=== PATIENT | male | born 1940 | race Caucasian/White ===

== ENCOUNTER 2017-09-15 09:32 | Inpatient (IN) | payer MEDICAID, MEDICARE ==
[~2017-09-15] VITALS: Ht 175.3 cm; Wt 79.5 kg
[2017-09-15] MEDS ORDERED: LORazepam 2 MG/ML VIAL (J2060) IV STA ×2 (09:36→09:48)
[2017-09-15 10:13] LABS: MEAN CORPUSCULAR HEMOGLOBIN 34.9 pg (27.0-33.0); MEAN CORPUSCULAR HGB CONC 35.8 g/dl (32.0-36.5); MEAN CORPUSCULAR VOLUME 97.5 fl (80.0-96.0); PLATELET COUNT, AUTOMATED 201 10^3/uL (150-450); RED CELL DISTRIBUTION WIDTH 13.5 % (11.5-14.5); WHITE BLOOD COUNT 10.4 10^3/uL (4.0-10.0)
[2017-09-15 10:23] LABS: INR 1.06
[2017-09-15 10:41] LABS: ANION GAP 12 MEQ/L (8-16); BLOOD UREA NITROGEN 11 MG/DL (7-18); CALCIUM LEVEL 8.5 MG/DL (8.8-10.2); CARBON DIOXIDE LEVEL 25 MEQ/L (21-32); CHLORIDE LEVEL 103 MEQ/L (98-107); GLOMERULAR FILTRATION RATE > 60.0 (>42); GLUCOSE, FASTING 150 MG/DL (83-110); POTASSIUM SERUM 3.4 MEQ/L (3.5-5.1); SODIUM LEVEL 140 MEQ/L (136-145)
[2017-09-15] MEDS ORDERED: ASPI81CH PO (10:44)
--- NOTE | 2017-09-15 11:21 | REP ---
Noncontrast CT study of the brain: History: Trauma. Findings: Bone window settings demonstrate an intact bony calvarium. No skull fracture is seen. Vascular calcifications noted in the distal vertebral and distal carotid arteries bilaterally. No intraorbital abnormality is seen. There is a right posterior parietal and right occipital scalp hematoma and laceration with some subcutaneous scalp air. There is a small parenchymal hematoma just above the petrous apex in the left posterior temporal lobe. This measures 16 mm in greatest diameter. There is a small zone of surrounding edema. No other intracranial hemorrhage is seen. There is a tiny low density area in the basal ganglia on the right consistent with a tiny old lacunar infarct. No midline shift is seen. No extra-axial fluid collection is seen. No infarct or mass lesion is observed. Impression: 16 mm contrecoup hematoma left posterior temporal lobe. Right posterior parietal vertex scalp hematoma and laceration. No skull fracture. No extra-axial hematoma. This report was telephoned to Dr. Perez in the ER at the time of this dictation. Signed by Rayshawn Zapata MD 09/15/2017 02:44 P
--- NOTE | 2017-09-15 11:44 | REP ---
CT study of the cervical spine without contrast: History: Injury in a fall. Technique: Helical scanning is acquired. 2 mm axial images are generated. Coronal and sagittal multiplanar re-formation images are generated and reviewed as well. CT findings: There is no evidence of cervical spine element fracture. There is advanced degenerative spondylosis with degenerative disc disease at each level from C3-4 through T7-T1. However, the C4-5 disc level and the left C4-5 facet are ankylosed. The right C5-6 facet appears to be ankylosed. There is osteoarthritic facet hypertrophy otherwise noted at multiple levels bilaterally. Some osteoarthritic changes are seen at the articulation between the dens and the anterior arch of C1. No malalignment is seen. No fracture or collapse is noted. Prevertebral soft tissues are not widened. No intraspinal or paraspinal hematoma is seen. Vascular calcification is noted. The visualized lung apices are clear. Impression: Degenerative spondylosis changes. C4-5 disc fusion and facet joint fusion as above. No fracture or other acute bony abnormality. Signed by Rayshawn Zapata MD 09/15/2017 02:44 P
[2017-09-15] MEDS ORDERED: POTASSIUM CHLORIDE 10 MEQ SR TABLET PO ONE (12:15)
[2017-09-15] MEDS ORDERED: MORPHINE 2 MG/ML 1ML SYRINGE IV PRN (12:30)
[2017-09-15] MEDS ORDERED: ONDANSETRON 4MG/2ML VIAL (J2405) IV PRN (12:30)
[2017-09-15] MEDS ORDERED: CEFAZOLIN SOD 1 GM in APPROPRIATE DILUENT 1 EA IV ONE (12:30)
[2017-09-15 12:47] LABS: MAGNESIUM LEVEL 2.3 MG/DL (1.8-2.4)
[2017-09-15] MEDS: levETIRAcetam 250MG TABLET (KEPPRA) PO SCH ×2 (13:37→21:58)
[2017-09-15] MEDS: ACETAMINOPHEN TAB 650MG DOSE (2X325MG) PO SCH ×3 (13:38→23:54)
[2017-09-15] MEDS: KCL 20MEQ IN D5/NS 1000ML 1,000 ML IV SCH ×2 (13:50→21:59)
[2017-09-15 14:02] LABS: ANION GAP 8 MEQ/L (8-16); BLOOD UREA NITROGEN 11 MG/DL (7-18); CALCIUM LEVEL 8.5 MG/DL (8.8-10.2); CARBON DIOXIDE LEVEL 25 MEQ/L (21-32); CHLORIDE LEVEL 107 MEQ/L (98-107); CREATININE FOR GFR 0.83 MG/DL (0.70-1.30); GLOMERULAR FILTRATION RATE > 60.0 (>42); GLUCOSE, FASTING 113 MG/DL (83-110); SODIUM LEVEL 140 MEQ/L (136-145)
--- NOTE | 2017-09-15 15:52 | CR ---
DATE OF CONSULTATION: 09/15/2017 PRIMARY CARE PROVIDER: None. CONSULTATION REPORT FOR: Dr. Worley REASON FOR CONSULTATION: Management of chronic medical problems. CHIEF COMPLAINT: Fall. HISTORY OF PRESENT ILLNESS: Provided by his son who is present at the bedside. The patient is unable to provide history as there is no recollection of the events last night and this morning. Healthcare proxy is Hunter Quezadalor. Phone number is [phone]. According to the son, the patient has no significant past medical history. He was brought in today due to a fall this morning. He had seen his father last evening at around 11:00 to 11:30. He was last seen talking to his daughter on the telephone and when the patient's son had gone home, the father had called him there and he said he will see him again this morning. According to the son, the patient was found by the roommate at 9:00 a.m. this morning in the dining room, lying back after hitting his head on the metal base of a chair. The patient has been living in the house with a roommate who was sitting on the couch this morning when he heard a loud thump. When he came into the dining room, he found the patient on the floor with a laceration on the left side of his scalp. The roommate attempted to find the patient's cell phone but could not. He then went outside the home, was able to get help, and emergency medical services (EMS ) arrived. According to the son, the patient has been a heavy drinker in the past and most likely has not had any alcohol for the past two months as he has not seen any evidence of recent alcohol use. Once in awhile, he sees a beer can at home. He had been in his usual state of health. He has not had any fevers, cough , diarrhea, nausea, vomiting, or any abdominal pain. Denies any dysuria, urgency, or frequency. His son sees him daily to check up on him. He has been able to complete his activities of daily living. He does not have a car but usually walks around with a stable gait. When the patient was brought in to the emergency room (ER), he was found to have left scalp laceration with traumatic closed head injury. CT of the head showed a small parenchymal hematoma about the petrous apex in the left posterior temporal lobe, measuring 16 mm in greatest diameter with surrounding edema. No other intracranial hemorrhage. There is a right posterior parietal and right occipital scalp hematoma and laceration with some subcutaneous scalp air and right basal ganglia old lacunar infarct. The patient was seen by Dr. Worley who placed the patient on cefazolin as well as Keppra with seizure precautions. Hospitalist service was called to admit for medical issues. The patient was not able to provide any history and appears to have had an amnestic episode. He could not recall calling his daughter last night and this morning could not recall any of the events. Finger glucose was 150 on arrival. Prolactin level was high at 37.1 with questionable seizure from possible alcohol withdrawal. Alcohol was 0.005. The patient denied any use of recreational drugs. Mini mental status examination was 16. Unable to fully cooperate and usually reiterated the questions back without fully answering them. PAST MEDICAL HISTORY: Right shoulder injury secondary to trauma with skiing accident. HOME MEDICATIONS: Aspirin 81 mg daily. ALLERGIES: No known drug allergies. SOCIAL HISTORY: History of heavy alcohol abuse. Quit several months ago. 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 Lives with a roommate in his home. Walks daily. Does not have a car. Healthcare proxy is Hunter Gomez, phone number [phone]. The patient is a full code. Denies recreational drug use. FAMILY HISTORY: Mother at age 75 with cerebrovascular accident (CVA), hip fracture, "heart trouble." Father at age 73 with coronary artery disease (CAD) and myocardial infarction (AL). REVIEW OF SYSTEMS: Could not be obtained as the patient is very confused. History is obtained from the patient's son. PHYSICAL EXAMINATION: Temperature 96.8, pulse 96, respiratory rate 20, blood pressure 142/60, 99% on two liters nasal cannula. GENERAL: The patient is awake, alert, and oriented times two to person and place. He is disoriented to time and date. He is able to say his name and [place], [place]. He thinks that he is at [facility]. Pupils are equally round and reactive to light and accommodation. Extraocular muscles are intact. The patient has a laceration along the left posterior parietal and occipital scalp with dried blood. Tongue is midline. The patient is able to speak fluently but slow. He is appropriate with responses. Appears to have some retrograde amnesia, unable to recall events yesterday. No sensory disturbance. The patient's motor function 5/5 bilateral upper extremities. Lower extremities are 4/5. The patient has no pronator drift, some dysmetria on [id number] testing. Mini mental status examination is 16. The patient is unable to provide the year, stated that it was "19 something." He is able say that it is winter. Unable to provide the date and day of the week. Unable to provide the month and states that it is Zechariah. With some prompting , he was able to say September. He is able to say he is in [place], [facility] in [place], not sure about the floor and stated that he was at [facility]. He is unable to perform the serial sevens. Unable to spell the word world backwards. Unable to name three objects. The patient was able to follow simple commands, folding a paper in half and putting it on his bed. Able to follow simple instructions such as close your eyes. Unable to write a sentence with a noun and a verb. Unable to copy a picture. According to the son, this is a marked difference from yesterday when the patient was able to perform his activities of daily living. LUNGS: Clear to auscultation. No wheezing, rales, or rhonchi. HEART: S1, S2, sinus rhythm. No murmurs, rubs, or gallops. ABDOMEN: Soft, nontender, nondistended. Positive bowel sounds. EXTREMITIES: No clubbing, cyanosis, or pitting edema. LABORATORY DATA: White count 10.4, hemoglobin 13, hematocrit 38, platelet count 201. Sodium 140, potassium 4, chloride 107, bicarbonate 25, BUN 11, creatinine 0.83, glucose of 113, prolactin of 37.1, troponin less than 0.02, MB fraction 2.7, total CK 76, magnesium of 2.3, INR of 1.06, PT 14, PTT 24.8, ethyl alcohol is 0.005. CT of the head shows right posterior parietal and right occipital scalp hematoma and laceration with some subcutaneous scalp air, small parenchymal hematoma above the petrous apex in the left posterior temporal lobe, measuring 16 mm in the greatest diameter. There is a small zone of surrounding edema. No other intracranial hemorrhage is seen. There is a tiny low-density area in the basal ganglia on the right consistent with tiny old lacunar infarct. No midline shift is seen. No extra-axial fluid collection. No infarct or mass lesion is observed. A 16 mm contrecoup hematoma in the left posterior temporal lobe, right posterior parietal vertex scalp hematoma and laceration. No skull fracture. No extra-axial hematoma. EKG shows sinus rhythm, ventricular rate of 109, premature ventricular complexes , moderate intraventricular conduction delay. CT of the cervical spine shows degenerative spondylosis changes, C4-5 disc fusion and facet joint fusion. No fracture or other acute bony abnormality. ASSESSMENT AND PLAN: This is a 77-year-old male with history of right shoulder traumatic injury. He was brought in after being found on the floor in the dining room with a closed traumatic brain injury with unknown circumstances. The patient is unable to provide the history and has a known history of alcohol abuse according to the son, unknown whether he may have had alcohol withdrawal seizure this morning, presents with traumatic closed head injury and a left posterior temporal lobe hematoma. Hospitalist service was consulted to manage medical issues. The patient has been admitted to neurosurgical services, Dr. Worley. The patient will be assigned to Dr. Alex Chamorro, hospital attending, on 09/15/2017 at 7:00 p.m. for the following issues: 1. Acute encephalopathy secondary to traumatic closed brain injury with a 16 mm contrecoup hematoma in the left posterior temporal lobe. The patient is known to have had a history of heavy alcohol abuse according to the son with questionable withdrawal seizures at home, causing his fall. As the patient is unable to provide most of the history, we will obtain an EEG, rule out seizures. He is currently on Keppra 500 twice a day. He appears to have no signs of aspiration but we will keep nothing by mouth in case neurosurgical intervention is required. We will check urine toxicology screen, check urinalysis to rule out urinary tract infection. The patient has no significant white count or fever to suspect possible infection as the cause for the patient's fall. 2. Traumatic closed brain injury with a 16 mm contrecoup left posterior temporal lobe hematoma. He will be managed by primary service. Currently nothing by mouth status in case neurosurgical services are required. The patient is to be on a head elevation of 30 degrees at all times. Neurologic checks every two hours. Physical therapy evaluation in the morning. IV fluids while nothing by mouth to prevent dehydration. Current mini mental status on admission is 16. May need to repeat to make sure that he is improving over time. We will obtain MRI of the brain and an EEG. 3. Hypokalemia with premature ventricular contractions (PVCs) on EKG. Potassium has been supplemented. Magnesium is normal. 4. Probably underlying dementia with mini mental status examination of 16. The patient will need to be fully evaluated as outpatient with neuropsychiatric evaluation and possible neurology referral. 5. History of alcohol abuse. The patient denies drinking any alcohol for the past one month. We will monitor for symptoms. 6. Possible seizure. We will obtain an EEG. Prolactin level is elevated. Currently on Keppra 500 twice a day. Aspiration and seizure precautions. 7. Deep vein thrombosis (DVT) prophylaxis with compression stockings due to traumatic closed brain injury with hemorrhage. The patient will be assigned to Dr. Alex Chamorro at 7:00 p.m. on 09/15/2017. ANNE MARIE
[2017-09-15 22:00] VITALS: BP 170/70
[2017-09-15 22:06] VITALS: BP 170/70
[2017-09-15] MEDS: hydrALAZINE INJ 20 MG/ML VIAL IV SCH (22:32)
[2017-09-15 23:00] VITALS: BP 158/77
[2017-09-15 23:22] LABS: MEAN CORPUSCULAR VOLUME 97.3 fl (80.0-96.0); PLATELET COUNT, AUTOMATED 143 10^3/uL (150-450); RED CELL DISTRIBUTION WIDTH 13.3 % (11.5-14.5); WHITE BLOOD COUNT 10.3 10^3/uL (4.0-10.0)
[2017-09-15 23:33] LABS: INR 1.16
[2017-09-15 23:46] LABS: ALBUMIN 3.4 GM/DL (3.2-5.2); ALBUMIN/GLOBULIN RATIO 1.26 (1.00-1.93); ALKALINE PHOSPHATASE 81 U/L (45-117); ALT/SGPT 20 U/L (12-78); ANION GAP 8 MEQ/L (8-16); AST/SGOT 31 U/L (7-37); BILIRUBIN,DIRECT 0.3 MG/DL (0.0-0.2); BILIRUBIN,TOTAL 1.3 MG/DL (0.2-1.0); BLOOD UREA NITROGEN 8 MG/DL (7-18); CALCIUM LEVEL 8.1 MG/DL (8.8-10.2); CARBON DIOXIDE LEVEL 27 MEQ/L (21-32); CHLORIDE LEVEL 108 MEQ/L (98-107); CREATININE FOR GFR 0.84 MG/DL (0.70-1.30); GLOMERULAR FILTRATION RATE > 60.0 (>42); GLUCOSE, FASTING 119 MG/DL (83-110); POTASSIUM SERUM 3.9 MEQ/L (3.5-5.1); SODIUM LEVEL 143 MEQ/L (136-145); TOTAL PROTEIN 6.1 GM/DL (6.4-8.2)
[2017-09-16] VITALS (13 sets, daily range): BP systolic 129–155; BP diastolic 60–78
--- NOTE | 2017-09-16 04:35 | ECGEPIP ---
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
[2017-09-16] MEDS: KCL 20MEQ IN D5/NS 1000ML 1,000 ML IV SCH ×2 (05:04→11:43)
[2017-09-16 05:18] LABS: BASO % 0.2 % (0.0-1.0); EOS # 0.1 10^3/uL (0.0-0.50); EOS % 1.6 % (0.0-3.0); IMMATURE GRANULOCYTE % 0.5 % (0-0); LYMPH # 1.2 10^3/uL (1.5-4.5); LYMPH % 14.3 % (24.0-44.0); MEAN CORPUSCULAR HGB CONC 35.4 g/dl (32.0-36.5); MEAN CORPUSCULAR VOLUME 98.7 fl (80.0-96.0); MONO # 0.8 10^3/uL (0.0-0.8); MONO % 9.7 % (0.0-5.0); NEUTROPHILS # 6.4 10^3/uL (1.8-7.7); NEUTROPHILS % 73.7 % (36.0-66.0); PLATELET COUNT, AUTOMATED 140 10^3/uL (150-450); RED CELL DISTRIBUTION WIDTH 13.4 % (11.5-14.5); WHITE BLOOD COUNT 8.7 10^3/uL (4.0-10.0)
[2017-09-16 05:58] LABS: ANION GAP 7 MEQ/L (8-16); BLOOD UREA NITROGEN 7 MG/DL (7-18); CALCIUM LEVEL 7.6 MG/DL (8.8-10.2); CARBON DIOXIDE LEVEL 25 MEQ/L (21-32); CHLORIDE LEVEL 112 MEQ/L (98-107); CHOLESTEROL LEVEL 107 MG/DL (<200); CREATININE FOR GFR 0.83 MG/DL (0.70-1.30); GLOMERULAR FILTRATION RATE > 60.0 (>42); GLUCOSE, FASTING 108 MG/DL (83-110); MAGNESIUM LEVEL 1.9 MG/DL (1.8-2.4); POTASSIUM SERUM 3.8 MEQ/L (3.5-5.1); SODIUM LEVEL 144 MEQ/L (136-145); TRIGLYCERIDES LEVEL 72 MG/DL (<150)
[2017-09-16] MEDS: ACETAMINOPHEN TAB 650MG DOSE (2X325MG) PO SCH ×3 (06:09→18:07)
[2017-09-16] MEDS: hydrALAZINE INJ 20 MG/ML VIAL IV SCH ×2 (06:10→11:44)
--- NOTE | 2017-09-16 06:20 | REPUSA ---
CLINICAL HISTORY: Head trauma. Followup exam. TECHNIQUE: Multiple axial CT images were obtained through the brain without IV contrast material. COMMENTS: Comparison to prior exam performed on 09/15/2017. 1.8x1.4 cm left temporal intraparenchymal hematoma. Mild surrounding hypodensity/edema. Effacement of the adjacent sulci. Increased right subgaleal soft tissue hematoma. There is normal configuration of sella turcica. There is no mass effect or midline shift. No hydrocep halus is present. The ventricles are symmetrical. No abnormal calcifications are present. There is diffuse age-appropriate cerebellar and cerebral atrophy with proportionally dilated ventricl es and cortical sulci. There are bilateral periventricular and subcortical white matter hypolucencies compatible with mild c hronic microvascular disease. IMPRESSION: Unchanged left temporal intraparenchymal hematoma. Unchanged mild surrounding edema. No midline shift or brain herniation. Increased right subgaleal soft tissue edema. Thank you for your kind referral of this patient.
[2017-09-16] MEDS ORDERED: MAG SULF 1GM/100ML (MAG RUN) 1 GM in APPROPRIATE DILUENT 1 EA IV ONE (08:30)
[2017-09-16] MEDS ORDERED: POTASSIUM CHLORIDE 10 MEQ SR TABLET PO ONE (08:30)
[2017-09-16] MEDS: levETIRAcetam 250MG TABLET (KEPPRA) PO SCH ×2 (08:48→20:56)
[2017-09-16] MEDS: FOLIC ACID 1 MG TAB PO SCH (08:48)
[2017-09-16] MEDS: MULTIVITAMINS/MINERALS THERAP 1 TAB PO SCH (08:48)
[2017-09-16] MEDS: THIAMINE 100 MG TAB PO SCH (08:48)
[2017-09-16] MEDS: CLOTRIMAZOLE 1% TOPICAL CREAM 30GM TOP SCH ×3 (09:00→21:06)
[2017-09-16 10:26] LABS: VITAMIN B12 LEVEL 573 PG/ML (247-911)
[2017-09-16] MEDS ORDERED: hydroCHLOROthiazide 12.5 MG CAPSULE PO ONE (14:00)
--- NOTE | 2017-09-16 14:06 | IPN ---
DATE OF EXAMINATION: 09/16/2017 SUBJECTIVE: Today, the patient tells me that he is feeling well. He denies any specific complaints of pain, headache. He denies fevers, chills, chest pain, shortness of breath, nausea, vomiting, or diarrhea. OBJECTIVE: VITAL SIGNS: Temperature 98.5. Pulse 89. Respiratory rate 24. Blood pressure (BP) 135/66. Oxygen (O2) saturation 95% on room air. GENERAL: He is an elderly man. Appears younger than his stated age. Lying in bed at a 30-degree angle. He does not appear to be in any acute distress. HEENT: He has an impressive laceration, which is stapled shut, on his right parietooccipital area. Cranial nerves II-XII are grossly intact. He has dry mucous membranes. No elevation in central venous pressure (CVP). CARDIOVASCULAR EXAMINATION: S1, S2. Crescendo-decrescendo systolic murmur. RESPIRATORY EXAMINATION: Is clear. ABDOMINAL EXAMINATION: Is obese. Bowel sounds present. The abdomen is soft. EXTREMITIES: No clubbing, cyanosis, or edema. He is not tremulous, diaphoretic. LABORATORY STUDIES: WBC 8.7 down from 10.4, hemoglobin 10.8, platelet count 140. Chemistry panel: Sodium 144, potassium 3.8, chloride 112, bicarbonate 25, BUN 7 , creatinine 0.8, magnesium 1.9, TSH within normal limits. A prolactin level was elevated at the time of his admission yesterday at 10 a.m. INR 1.1. Toxicology: An ethyl alcohol level was 0.005. IMAGING: The patient had a repeat CT scan of his head that revealed unchanged left temporal intraparenchymal hematoma, unchanged mild surrounding edema, no midline shift or brain herniation, increased right subgaleal soft tissue edema. ASSESSMENT AND PLAN: This is a 77-year-old man with an unwitnessed fall with small intracranial hemorrhage. PROBLEMS: 1. Intracranial hemorrhage. I have spoken with Dr. Worley today in person. He has assured me that the patient requires no further neurosurgical care interventions. The patient is able to have a regular diet. Is stable for transfer out of the medical intensive care unit. He had previously stated he wished to have blood pressure goals of systolic less than 140. At this time, if the patient was stable, he was fine with the patient being discharged home. 2. Fall. The patient does appear to have some ataxia on my examination today. He is awake, alert, oriented but does exhibit some word-finding difficulty. He was reportedly ataxic with physical therapy. An MRI with and without contrast has been ordered yesterday evening at once (STAT) and curiously has not been completed as of yet. Given that this patient did have an unwitnessed fall, I am certainly concerned for syncope. There was some question as to whether or not he may have had an alcohol withdrawal seizure. His prolactin level is elevated. An electroencephalogram (EEG) has been ordered. He is on seizure prophylaxis. Dr. Worley has suggested that this should be continued for at least 7 days; and beyond that, he would defer to a neurologist. The patient does not appear to be exhibiting any signs or symptoms of withdrawal and has not required any benzodiazepine therapy since his arrival to the floor. I have spoken with Dr. Rossi of neurology, who will see the patient in consultation. It appears as though Dr. Worley did order a consult on paper and placed an order in the computer. However, it is unclear to me if neurology was ever actually called and spoken to. Also, given that his son witnessed a syncopal episode and the patient does have a crescendo-decrescendo systolic murmur, it is highly suggested of aortic stenosis. I will check an echocardiogram. He is working with physical therapy. 3. Tinea pedis. Will provide him with clotrimazole topically. 4. Hypokalemia and hypomagnesemia. He did have some mild premature ventricular contractions (PVCs) on telemetry. I will provide him with electrolyte supplementation. 5. Possible underlying dementia. He has a thyroid-stimulating hormone (TSH) within normal limits. It is unclear to me if he has underlying dementia versus this is a postconcussive syndrome. 6. History of alcohol abuse. He did not have an elevated alcohol level in his presentation. Will provide him with thiamine, folic acid, and multivitamin. He is not exhibiting any signs or symptoms of withdrawal at this time. 7. Deep vein thrombosis (DVT) prophylaxis with sequentials and thromboembolic deterrents (TEDs). DISPOSITION: Dr. Worley has transferred this patient out of medical intensive care unit. I have agreed to take him under the care of my service. So, I will continue to follow this patient and evaluate him for syncope. ANNE MARIE
[2017-09-17] MEDS: ACETAMINOPHEN TAB 650MG DOSE (2X325MG) PO SCH ×2 (00:02→05:26)
[2017-09-17 04:00] VITALS: BP 137/70
--- NOTE | 2017-09-17 07:26 | CR ---
DATE OF CONSULTATION: 09/16/2017 REFERRING PHYSICIAN: Dr. Alex Chamorro REASON FOR CONSULTATION: Left posterior temporal cerebral hemorrhage after trauma. HISTORY OF PRESENT ILLNESS: Steven Gomez is a 77-year-old man who was at his baseline state of health until 09/15/2017 when he fell in the morning. He had no recollection of events the night before or that morning when he came to [facility]. He last talked to his daughter the night before on the phone. According to the son, the patient was found around 9:00 a.m. in the dining room laying back after hitting his head on a metal base of a chair. He was found with a laceration on the left side of his scalp. The patient denies that he drinks alcohol. He states that he may have one mixed drink a day and he does not drink every day. The patient denies having seizure. He states that he was fixing his living room and roof when he fell and hit his head. There is mentioning in electronic medical records if he had a seizure which resulted in a fall. It is thought that he may have had a seizure due to alcohol withdrawal. The patient himself denies having a seizure. He denies any headaches, neck or back pain. He denies any dizziness or difficulty with his speech. He states that he walks every day and he walks a lot. He does not take a bus. He keeps himself physically active. He states that he was trying to fix his living room and roof when he fell. DIAGNOSTIC STUDIES: CT scan of his head was reviewed and showed left posterior temporal 1.6 cm cerebral hemorrhage due to trauma and contusion. His hematocrit is 30.5 and platelet count is 140 with normal metabolic profile. His blood alcohol level was 0.005. PAST MEDICAL HISTORY: Right shoulder injury due to skiing accident. HOME MEDICATIONS: - aspirin 81 mg by mouth daily ALLERGIES: None. SOCIAL HISTORY: The patient states that he drinks one mixed drink a day and sometimes he does not drink at all. There is mention of alcohol abuse history in the past. FAMILY HISTORY: Mother had stroke, she also had heart disease. Father had coronary artery disease. REVIEW OF SYSTEMS: All systems were reviewed and found to be noncontributory except as mentioned in history of present illness. PHYSICAL EXAMINATION: Temperature is 99.1, pulse 85, respiratory rate 20, blood pressure 140/60, and 94% saturation on room air. Heart: Regular rate and rhythm. Lungs: Clear to auscultation. No pedal edema. No sign of meningeal irritation. There is no tremor, fracture or rash. The patient is awake, alert, oriented to place, person and year. He is able to tell me the name of the president. He does have mild receptive aphasia. Extraocular muscles are intact. No facial weakness. Tongue and uvula are midline. 5/5 strength in all four extremities. Deep tendon flexes 2+ throughout. Normal sensation to touch, pinprick and vibration in both sides. His plantars are downgoing. Gait was not tested. There is no dysmetria. ASSESSMENT: 1. Traumatic left posterior temporal cerebral hemorrhage. 2. No clear evidence of seizure. PLAN: 1. The patient may benefit from speech therapy. He does seem to have mild receptive aphasia. 2. Left posterior temporal cerebral hemorrhage has been stable on his repeat CT scan of head. We may repeat his scan as outpatient in a few weeks to see if complete resolution of his left temporal cerebral hemorrhage and contusion. 3. Follow with our office in 2-3 weeks after hospital discharge. 4. The patient was seen by neurosurgery and they did not recommend neurosurgical intervention.
[2017-09-17 07:59] LABS: MEAN CORPUSCULAR HEMOGLOBIN 34.8 pg (27.0-33.0); MEAN CORPUSCULAR VOLUME 99.3 fl (80.0-96.0); PLATELET COUNT, AUTOMATED 123 10^3/uL (150-450); RED CELL DISTRIBUTION WIDTH 13.6 % (11.5-14.5); WHITE BLOOD COUNT 6.8 10^3/uL (4.0-10.0)
[2017-09-17 08:20] LABS: ANION GAP 8 MEQ/L (8-16); BLOOD UREA NITROGEN 9 MG/DL (7-18); CARBON DIOXIDE LEVEL 25 MEQ/L (21-32); CHLORIDE LEVEL 110 MEQ/L (98-107); CREATININE FOR GFR 0.85 MG/DL (0.70-1.30); GLOMERULAR FILTRATION RATE > 60.0 (>42); GLUCOSE, FASTING 93 MG/DL (83-110); POTASSIUM SERUM 4.1 MEQ/L (3.5-5.1); SODIUM LEVEL 143 MEQ/L (136-145)
[2017-09-17] MEDS: THIAMINE 100 MG TAB PO SCH (09:30)
[2017-09-17] MEDS: levETIRAcetam 250MG TABLET (KEPPRA) PO SCH ×2 (09:30→21:00)
[2017-09-17] MEDS: hydroCHLOROthiazide 12.5 MG CAPSULE PO SCH (09:30)
[2017-09-17] MEDS: MULTIVITAMINS/MINERALS THERAP 1 TAB PO SCH (09:30)
[2017-09-17] MEDS: FOLIC ACID 1 MG TAB PO SCH (09:30)
[2017-09-17] MEDS: CLOTRIMAZOLE 1% TOPICAL CREAM 30GM TOP SCH ×2 (09:31→21:02)
[2017-09-17] MEDS ORDERED: PROHANCE 279.3MG/ML 15ML VIAL (A9576) As Ordered ONE (10:44)
[2017-09-17 12:00] VITALS: BP 148/72
--- NOTE | 2017-09-17 13:01 | IPN ---
DATE OF EXAMINATION: 09/17/2017 SUBJECTIVE: The patient tells me that he is doing significantly better. He denies any significant pain. He denies fevers, chills, chest pain, shortness of breath, nausea, vomiting, or diarrhea. OBJECTIVE: VITAL SIGNS: Temperature 99. T-max 99.1. Pulse 69. Respiratory rate 18. Blood pressure (BP) 137/70. Oxygen (O2) saturation 96% on room air. GENERAL: He is a somewhat disheveled elderly man who appears younger than his stated age sitting on the edge of his bed. He does not appear to be in any acute distress. HEENT: He has a well healing laceration. He has a subconjunctival hemorrhage of his right eye. Moist mucous membranes. No elevation in central venous pressure (CVP). CARDIOVASCULAR EXAMINATION: S1, S2, regular. Crescendo-decrescendo systolic murmur. RESPIRATORY EXAMINATION: Clear. ABDOMINAL EXAMINATION: Mildly obese. EXTREMITIES: No clubbing, cyanosis, or edema. LABORATORY STUDIES: WBC 6.8, hemoglobin 10.4, platelet count 123. Chemistry panel: Sodium 143, potassium 4.1, chloride 110, bicarbonate 25, BUN 9, creatinine 0.8. No new imaging. ASSESSMENT AND PLAN: This is a 77-year-old man status post unwitnessed syncopal episode with head trauma. PROBLEMS: 1. Intracranial hemorrhage. Neurosurgery's help is appreciated. They have signed off on the case. The patient requires no neurosurgical intervention. He is currently on antiepileptic therapy to complete a seven day course. Dr. Worley I greatly appreciate seeing the patient and recommended speech therapy as the patient does have some receptive aphasia. He has also recommended repeating the CT scan of the head in a few weeks through his office. The patient does appear to be much improved today. He is awake, alert and oriented times three. His blood pressure goal is less than 140, which has been easily controlled with hydrochlorothiazide 12.5 mg by mouth daily. 2. Unwitnessed syncope. The etiology remains unclear. A MRI has been ordered and will be completed today. EEG has also been ordered as well as an echocardiogram given that the patient has a murmur. He has been monitored on telemetry without any significant events and has been downgraded to the medical-surgical floor. The patient is unable to recall the incident and there were no witnesses who are reachable. Dr. Rossi does not share a concern for potential seizure as he feels there is no clear evidence for this. 3. Tinea pedis. The patient was started on clotrimazole topically twice a day. 4. Hypokalemia and hypomagnesemia. Appears to have resolved. 5. History of alcohol abuse. He is on folic acid, thiamine and multivitamin. He does have some macrocytic anemia which is highly suggestive of this. Alcohol cessation counseling has been provided. 6. Deep vein thrombosis (DVT) prophylaxis with sequentials and thromboembolic deterrents (TEDs). No pharmacological agents in the setting of recent intracranial hemorrhage. DISPOSITION: Pending clearance from physical therapy (PT), followup echo, MRI and EEG results.
--- NOTE | 2017-09-17 15:59 | REP ---
MRI brain without and with IV contrast: History: Altered mental status. Comparison study is a head CT from September 16, 2017. CT study from September 15, 2017 also reviewed. Technique: Axial and sagittal imaging planes are utilized for T1 and T2-weighted scans. Sequences include spin-echo, fast spin echo, FLAIR, and diffusion weighted sequences. MRI contrast dose: 15 mL of intravenous ProHance. MRI findings: There is metallic field susceptibility artifact emanating from scalp dalton in the region of the right occipital scalp hematoma. There is a fairly extensive subgaleal component to the right scalp hematoma as well. This is seen extending caudally nearly to the petrous apex. No bony calvarial lesion is seen. There is a mucous retention cyst in the left maxillary sinus. The patient is status post bilateral cataract surgery. No other intraorbital abnormality is seen. Craniocervical junction and upper cervical cord are normal in appearance. An acute left temporal lobe hematoma is seen just above the petrous apex on the left corresponding to the CT findings. There is blooming from hemosiderin and chemical shift artifact in the region of the hematoma. Hematoma appears to be 21 mm in greatest transverse dimension on axial images. This is unchanged from most recent CT study of September 16, 2017. There is a rim of surrounding vasogenic edema and there is subtle attenuation of the temporal horn of the lateral ventricle. There is a new finding however of a blood fluid level in the occipital horn of the right lateral ventricle indicating some ventricular penetration versus spontaneous intraventricular hemorrhage. Ventricular size is unchanged. There are white matter microischemic changes in the periventricular and subcortical white matter bilaterally. No other parenchymal hemorrhage is seen. Impression: 1. 2.1 cm left temporal lobe parenchymal hemorrhage. Surrounding vasogenic edema. This is essentially unchanged from yesterday's CT study. 2. There is a blood fluid level visible in the right occipital horn indicating a small amount of intraventricular hemorrhage. 3. No evidence of extra-axial fluid collection infarct or midline shift. 4. Fairly large right scalp and subgaleal hematoma. Signed by Rayshawn Zapata MD 09/17/2017 04:17 P
[2017-09-17 20:00] VITALS: BP 137/58
[2017-09-18 04:00] VITALS: BP 152/74
[2017-09-18 06:49] LABS: MEAN CORPUSCULAR HEMOGLOBIN 34.2 pg (27.0-33.0); MEAN CORPUSCULAR HGB CONC 35.1 g/dl (32.0-36.5); MEAN CORPUSCULAR VOLUME 97.4 fl (80.0-96.0); PLATELET COUNT, AUTOMATED 141 10^3/uL (150-450); RED CELL DISTRIBUTION WIDTH 13.6 % (11.5-14.5); WHITE BLOOD COUNT 7.7 10^3/uL (4.0-10.0)
[2017-09-18 07:12] LABS: ANION GAP 3 MEQ/L (8-16); BLOOD UREA NITROGEN 10 MG/DL (7-18); CALCIUM LEVEL 8.5 MG/DL (8.8-10.2); CARBON DIOXIDE LEVEL 30 MEQ/L (21-32); CHLORIDE LEVEL 107 MEQ/L (98-107); GLOMERULAR FILTRATION RATE > 60.0 (>42); GLUCOSE, FASTING 91 MG/DL (83-110); POTASSIUM SERUM 3.8 MEQ/L (3.5-5.1); SODIUM LEVEL 140 MEQ/L (136-145)
--- NOTE | 2017-09-18 07:56 | EEG ---
DATE OF PROCEDURE: 09/16/2017 REFERRING PHYSICIAN: Dr. Worley DIAGNOSIS: Cerebral hemorrhage, rule out seizures. EEG NUMBER: [id number]. HISTORY: The patient is a 77-year-old man who was admitted at [facility] after a fall resulting in left posterior temporal confusion and cerebral hemorrhage. This EEG was done to rule out epileptic potential. He is currently on Keppra. TECHNICAL DESCRIPTION: This digital EEG was recorded by 21 scalp, ear and two EKG electrodes and was reviewed in bipolar and referential montages following reformatting in 10-20 International Electrode Placement System. INTERPRETATION: The patient was noted to be in awake and drowsy states during this EEG. Resting awake background rhythm consisted of well-formed posterior dominant rhythm with anterior/posterior gradient comprising of 10 Hz alpha activity measuring 15-40 microvolts in amplitude. Stage I and II sleep were reviewed and were symmetric bilaterally. Hyperventilation could not be performed. Photic stimulation remained unremarkable. Intermittent left parietal and posterior temporal theta slowing was noted. No epileptiform abnormalities were seen. No clinical or electrographic seizures were recorded. CONCLUSION: This EEG in awake, drowsy states, stage I and II sleep is mildly abnormal due to presence of mild intermittent left parietal and posterior temporal theta slowing consistent with focal cortical structural or functional abnormality, likely due to focal contusion and cerebral hemorrhage. No epileptiform abnormalities were seen. No clinical or electrographic seizures were recorded. Clinical correlation is recommended.
[2017-09-18] MEDS: THIAMINE 100 MG TAB PO SCH (09:05)
[2017-09-18] MEDS: levETIRAcetam 250MG TABLET (KEPPRA) PO SCH ×2 (09:05→20:26)
[2017-09-18] MEDS: FOLIC ACID 1 MG TAB PO SCH (09:05)
[2017-09-18] MEDS: CLOTRIMAZOLE 1% TOPICAL CREAM 30GM TOP SCH ×2 (09:06→20:26)
[2017-09-18] MEDS: hydroCHLOROthiazide 12.5 MG CAPSULE PO SCH (09:06)
[2017-09-18] MEDS: MULTIVITAMINS/MINERALS THERAP 1 TAB PO SCH (09:06)
[2017-09-18 14:00] VITALS: BP 144/63
[2017-09-18 20:00] VITALS: BP 153/79
[2017-09-19 05:40] LABS: MEAN CORPUSCULAR HEMOGLOBIN 34.7 pg (27.0-33.0); MEAN CORPUSCULAR VOLUME 96.4 fl (80.0-96.0); PLATELET COUNT, AUTOMATED 140 10^3/uL (150-450); RED CELL DISTRIBUTION WIDTH 13.2 % (11.5-14.5); WHITE BLOOD COUNT 7.5 10^3/uL (4.0-10.0)
[2017-09-19 05:56] LABS: ANION GAP 7 MEQ/L (8-16); BLOOD UREA NITROGEN 11 MG/DL (7-18); CALCIUM LEVEL 8.2 MG/DL (8.8-10.2); CARBON DIOXIDE LEVEL 29 MEQ/L (21-32); CHLORIDE LEVEL 106 MEQ/L (98-107); CREATININE FOR GFR 0.82 MG/DL (0.70-1.30); GLOMERULAR FILTRATION RATE > 60.0 (>42); GLUCOSE, FASTING 91 MG/DL (83-110); POTASSIUM SERUM 3.8 MEQ/L (3.5-5.1); SODIUM LEVEL 142 MEQ/L (136-145)
[2017-09-19 06:00] VITALS: BP 125/73
--- NOTE | 2017-09-19 07:10 | ECHO ---
DATE OF PROCEDURE: 09/17/2017 REFERRING PHYSICIAN: Dr. Alex Chamorro INDICATION: Syncope. HEIGHT: 175 cm WEIGHT: 80 kg 2D MEASUREMENTS: Aortic root: 3.6 cm Aortic annulus: 2.1 cm Left atrium: 4.7 cm Ventricular septum: 1.05 cm Posterior wall: 1.01 cm Proximal ascending aorta: 3.8 cm Inferior vena cava: 1.8 cm DOPPLER MEASUREMENTS: Aortic valve velocity: 216 cm/s LVOT velocity: 100 cm/s LVOT VTI: 20.4 cm Very mild mitral regurgitation. Mitral E velocity: 94.4 cm/s Mitral A velocity: 105 cm/s Mitral deceleration time: 105 ms Very mild tricuspid regurgitation. Pulmonary artery systolic pressure: 53 mmHg by pulmonary acceleration time method. MITRAL ANNULAR TISSUE DOPPLER: E prime septal: 9.2 cm/s E prime lateral: 8.6 cm/s DESCRIPTION: Rhythm was sinus. This was a 2D, M-mode, color flow Doppler and pulse wave Doppler examination and included mitral annular tissue Doppler. Image quality was fair. No pericardial effusion. CONCLUSIONS: 1. Normal left ventricle size and wall thickness. Normal regional left ventricular (LV) wall motion and wall thickening. Normal LV systolic function. Left ventricular ejection fraction (LVEF) 65-70% by visual estimate. Normal LV diastolic function for age. 2. Suggestive of moderate elevation of pulmonary artery systolic pressure. 3. Mild-moderate left atrial dilatation. 4. Moderate aortic valve sclerosis of 3-cusp aortic valve. No aortic stenosis or regurgitation. 5. Moderate mitral annular calcification. Very mild mitral regurgitation. No mitral stenosis. 6. Mild dilatation of the proximal ascending aorta. Copy To: Dr. Alex Worley
[2017-09-19] MEDS: hydroCHLOROthiazide 12.5 MG CAPSULE PO SCH (08:13)
[2017-09-19] MEDS: CLOTRIMAZOLE 1% TOPICAL CREAM 30GM TOP SCH (08:13)
[2017-09-19] MEDS: FOLIC ACID 1 MG TAB PO SCH (08:13)
[2017-09-19] MEDS: MULTIVITAMINS/MINERALS THERAP 1 TAB PO SCH (08:13)
[2017-09-19] MEDS: levETIRAcetam 250MG TABLET (KEPPRA) PO SCH (08:13)
[2017-09-19] MEDS: THIAMINE 100 MG TAB PO SCH (08:13)
[2017-09-19] MEDS ORDERED: HYDR12CA PO (09:46)
[2017-09-19] MEDS ORDERED: VITMTA PO (09:46)
[2017-09-19] MEDS ORDERED: FOLI1TAB4 PO (09:46)
[2017-09-19] MEDS ORDERED: THIA100TA PO (09:46)
[2017-09-19] MEDS ORDERED: KEPP250T5 PO ×2 (09:46→14:33)
--- NOTE | 2017-09-19 15:58 | IPN ---
DATE: 09/18/2017 SUBJECTIVE: The patient tells me that he is feeling well. He has no complaints. He denies any fevers, chills, chest pain, shortness of breath, nausea, vomiting, or diarrhea. OBJECTIVE: VITAL SIGNS: Temperature 98.7, pulse 73, respiratory rate 16, blood pressure 152/74, oxygen saturation 95% on room air. GENERAL: He is a pleasant, elderly, man sitting up in bed. He does not appear to be in any acute distress. HEENT: Cranial nerves II through XII are grossly intact. He has subconjunctival hemorrhage of the right eye. He has a well healing laceration with dalton in place. Moist mucous membranes. No elevation in central venous pressure. He is awake, alert, oriented times three. CARDIOVASCULAR EXAM: S1, S2 regular with a crescendo-decrescendo systolic murmur. RESPIRATORY EXAM: Clear. ABDOMINAL EXAM: Obese. EXTREMITIES: No clubbing, cyanosis or edema. LABORATORY STUDIES: WBC 7.7, hemoglobin 10.6, platelet count 141. Chemistry panel: Sodium 140, potassium 3.8, chloride 107, bicarbonate 30, BUN 10, creatinine 0.8. No new imaging. ASSESSMENT AND PLAN: This is a 77-year-old man status post syncopal episode with head trauma. 1. Intracranial hemorrhage. Neurosurgery and neurology's help have both greatly been appreciated. Neurosurgery has signed off the case. As per Dr. Worley, he should complete 7 days of antiepileptic therapy. Neurology sees no evidence of seizure and as such he will be sent home to complete a 7 day course. He did have some receptive aphasia, which appears to be improving at this time. There was also suggestion that he should have CT scan of the head in a few weeks at the neurology office. He does appear much improved today. He has had an EEG, which was not suggestive of seizure activity. 2. Unwitnessed syncope. The etiology remains unclear and we may never know. MRI did not reveal any etiologies, neither did an EEG. Echocardiogram is currently pending. The patient does have murmur suggestive of aortic stenosis. He had been monitored on telemetry for 24 hours without any issues before being downgraded to the medical/surgical floor. He is working with physical therapy (PT) and awaiting their clearance. 3. Tinea pedis. He was on treatment with clotrimazole with improvement in his symptoms.; 4. Hypokalemia and hypomagnesemia, resolved. 5. History of alcohol abuse. He is on folic acid, thiamine and multivitamin. He does have some macrocytic anemia, which is suggestive of alcohol abuse. 6. Deep vein thrombosis (DVT) prophylaxis. He is on sequential compression device (SCD) and thromboembolic compression stockings (TEDS). No pharmacological agents in the setting of recent intracranial hemorrhage. DISPOSITION: Pending physical therapy (PT) clearance and echocardiogram results.
--- NOTE | 2017-09-20 16:08 | DSES ---
DATE OF ADMISSION: 09/15/2017 DATE OF DISCHARGE: 09/19/2017 DISCHARGE DIAGNOSIS: Intracranial hemorrhage. SECONDARY DIAGNOSES: 1. Syncope. 2. Tinea pedis. 3. Hypokalemia. 4. Hypomagnesemia. 5. Alcohol abuse. CONSULTATIONS: Dr. Blair Worley, neurosurgery. Dr. Palak Rossi, neurology. HOSPITAL COURSE: The patient is a 77-year-old male who had an unwitnessed fall at home while working on his roof with significant head trauma to the back of his right head. He did present to the emergency room and at the time of his arrival he did have a CT scan of the head, which revealed a 16 mm contrecoup hematoma left posterior temporal lobe, as well as a right posterior parietal vertex scalp hematoma and laceration. He was initially admitted to the neurosurgical services. They did repeat a CT scan the next day without significant change. They did consult our service and, after his repeat CT scan was negative, they did sign off on the case. He also had an MRI during his stay that did not reveal any significant changes. Workup for his syncope was completed. He did have an echocardiogram completed during his stay here as he had a systolic murmur concerning for aortic stenosis. That revealed normal left ventricular (LV) systolic function, normal LV diastolic function, some moderate elevation of pulmonary artery systolic pressure, mild moderate left atrial dilation, moderate aortic valve sclerosis, but no aortic stenosis. At the time of patient's presentation, there was some concern for possible seizure, however, he was seen by Dr. Rossi of neurology and did have an EEG, and there was no clear evidence of seizure. The patient was seen by physical therapy and although at initial presentation he was somewhat confused and had some issues with amnesia and receptive aphasia, these quickly did resolve and he returned back to his baseline cognitive functioning, and was cleared by physical therapy. The patient should likely have a repeat CT scan to confirm resolution in neurology office in followup. SUBJECTIVE: Today, the patient tells me he feels great and he wants to go home. OBJECTIVE: VITAL SIGNS: Temperature 99.2, pulse 72, respiratory rate 18, blood pressure 125/73, oxygen saturation 98% on room air. GENERAL: He is a pleasant, obese, man, up and ambulating around, wearing street clothes. He does not appear to be in any acute distress. HEENT: Well healing laceration. He has right-sided subconjunctival hemorrhage, which is stable. Moist mucous membranes. Cranial nerves II-XII are grossly intact. Face is symmetric. Tongue is midline. CARDIOVASCULAR EXAM: S1, S2, regular. RESPIRATORY EXAM: Clear. ABDOMINAL EXAM: Benign, but obese. EXTREMITIES: No cyanosis, clubbing, edema. LABORATORY STUDIES: WBC 7.5, hemoglobin 10.7, platelet count 140. Chemistry panel: Sodium 142, potassium 3.8, chloride 106, bicarbonate 29, BUN 11, creatinine 0.8. IMAGING: As outlined above. ASSESSMENT AND PLAN: This is a 77-year-old man with an unwitnessed syncopal episode with head trauma. 1. Intracranial hemorrhage. Neurology and neurosurgery's help has been appreciated. The patient should have a repeat CT scan in 2 weeks in the neurology office. He does not have a primary care provider (PCP) and so a new one has been established for him. He is at his baseline functioning and cognitive status. He has been cleared by physical therapy. Neurosurgery has signed off on his care. His receptive aphasia has resolved. 2. Hypertension. This is a new diagnosis during his stay. He previously was not following with doctors. He is easily controlled with 12.5 mg of hydrochlorothiazide, which was started during this stay. 3. Alcohol abuse. Cessation and counseling advised. He has been started on folic acid, multivitamin, and thiamine. 4. Macrocytic anemia. Mild and asymptomatic, likely related to his ongoing alcohol abuse, and as such, he has been provided with thiamine, folic acid, and multivitamin. Followup with his primary care provider (PCP). 5. Unwitnessed syncope. We never may know the answer to this, he may have simply slipped and fell. 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 I advised him no driving until followup with neurology. 6. Hypokalemia with hypomagnesemia, resolved. DISPOSITION: The patient is being discharged home. He is at his functional baseline, independent of his activities of daily living. His clinical syndrome has resolved. He is to followup with his new primary care provider (PCP) appointment, followup with neurology in 2 weeks. His activity is no driving until followup with neurology. His diet is a 2 gram sodium. He is to return to the emergency room (ER) if his symptoms worsen. MEDICATIONS: At the time of discharge: - folic acid 1 mg daily - hydrochlorothiazide 12.5 mg daily - Keppra 500 mg twice a day - multivitamin one tablet daily - thiamine 100 mg daily Greater than 30 minutes spent organizing disposition.
== END 2017-09-19 11:35 | disposition home or self-care (01) | DRG 82 ==
LOC: M ED 09:32 → EDBD 09:32 → M ED INP 11:45 → M ICU 21:05 → M MS4PR 09-16 16:19
PROVIDERS: ADMIT Neurological Surgery; ATTEND Internal Medicine
DX: S06.359A Traumatic hemorrhage of left cerebrum with loss of consciousness of unspecified duration, initial encounter (principal); G93.40 Encephalopathy, unspecified; S06.1X9A Traumatic cerebral edema with loss of consciousness of unspecified duration, initial encounter; R41.2 Retrograde amnesia; S01.01XA Laceration without foreign body of scalp, initial encounter; E87.6 Hypokalemia; E83.42 Hypomagnesemia; B35.3 Tinea pedis; R55 Syncope and collapse; I10 Essential (primary) hypertension; F10.10 Alcohol abuse, uncomplicated; Z79.899 Other long term (current) drug therapy; D53.9 Nutritional anemia, unspecified; Z79.82 Long term (current) use of aspirin; W13.2XXA Fall from, out of or through roof, initial encounter; Y92.009 Unspecified place in unspecified non-institutional (private) residence as the place of occurrence of the external cause